=== PATIENT | male | born 2005 | race Caucasian/White ===

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

== ENCOUNTER → 2023-03-31 | Outpatient (CLI) | payer OTHER | LOC: RAD 16:23 | DX: M25.532 Pain in left wrist (principal) ==

== ENCOUNTER → 2023-10-19 | Outpatient (CLI) | payer OTHER | LOC: RAD 09:39 | DX: R55 Syncope and collapse (principal) ==